=== PATIENT | male | born 1965 | race Caucasian/White ===

== ENCOUNTER → 2019-04-24 | Outpatient (CLI) | payer BC ==
--- NOTE | 2019-04-24 15:44 | 2DMMODE ---
[place] [address] 2 D/M-MODE ECHOCARDIOGRAM Name: LIZZIE WISE Room: [facility]#: [id number] Admission: 04/24/19 Attend Phys: Saba Jackman, Discharge: Date of : 69 Date of Service: 04/24/19 1542 Report #: [id number] THIS REPORT FOR: cc: Dallas Campoverde,Dallas Andrade,Marky Bruce MD [facility] ~ APPROVED REPORT Study performed: 04/24/2019 11:00:20 EXAM: Comprehensive 2D, Doppler, and color-flow Echocardiogram Patient Location: Out-Patient BSA: 2.24 HR: 85 bpm BP: 128/84 mmHg Other Information Study Quality: Good Indications Dyspnea 2D Dimensions IVSd: 12.61 (7-11mm) LVOT Diam: 20.32 (18-24mm) LVDd: 48.32 mm PWd: 11.55 (7-11mm) Ascending Ao: 28.56 (22-36mm) LVDs: 29.16 (25-40mm) Aortic Root: 29.80 mm Volumes Left Atrial Volume (Systole) LA ESV Index: 11.00 mL/m2 Aortic Valve AoV Peak Alexandre.: 1.14 m/s AO Peak Gr.: 5.22 mmHg LVOT Max P.61 mmHg AO Mean Gr.: 2.99 mmHg LVOT Mean P.05 mmHg LVOT Max V: 1.07 m/s AO V2 VTI: 21.29 cm LVOT Mean V: 0.64 m/s RONALD (VTI): 3.48 cm2 LVOT V1 VTI: 22.84 cm Mitral Valve E/A Ratio: 0.97 [place] [address] 2 D/M-MODE ECHOCARDIOGRAM Name: LIZZIE WISE Room: [facility]#: [id number] Admission: 04/24/19 Attend Phys: Saba Jackman, Discharge: Date of : 69 Date of Service: 04/24/19 1542 Report #: [id number] MV Decel. Time: 203.05 ms MV E Max Alexandre.: 0.54 m/s MV PHT: 58.88 ms MVA (PHT): 3.74 cm2 TDI E/Lateral E': 4.50 E/Medial E': 6.75 Medial E' Alexandre.: 0.08 m/s Lateral E' Alexandre.: 0.12 m/s Pulmonary Valve PV Peak Alexandre.: 1.12 m/s PV Peak Gr.: 5.06 mmHg Tricuspid Valve RAP Estimate: 5.00 mmHg TR Peak Gr.: 19.36 mmHg RVSP: 24.36 mmHg PA Pressure: 24.36 mmHg Left Ventricle The left ventricle is normal size. There is normal LV segmental wall motion. There is normal left ventricular wall thickness. Left ventricular systolic function is normal. The left ventricular ejection fraction is within the normal range. LVEF is 55-60%. The left ventricular diastolic function is normal. Right Ventricle The right ventricle is normal size. The right ventricular systolic function is normal. Atria The left atrium size is normal. The right atrium size is normal. Aortic Valve The aortic valve is normal in structure. No aortic regurgitation is present. There is no aortic valvular stenosis. Mitral Valve The mitral valve is normal in structure. There is no mitral valve regurgitation noted. No evidence of mitral valve stenosis. Tricuspid Valve The tricuspid valve is normal in structure. Mild tricuspid regurgitation[place] [address] 2 D/M-MODE ECHOCARDIOGRAM Name: LIZZIE WISE Room: [facility]#: [id number] Admission: 04/24/19 Attend Phys: Saba Jackman, Discharge: Date of : 69 Date of Service: 04/24/19 1542 Report #: [id number] The pulmonary valve is normal in structure. There is no pulmonic valvular regurgitation. Great Vessels The aortic root is normal in size. IVC is normal in size and collapses >50% with inspiration. Pericardium There is no pericardial effusion. <Conclusion> The left ventricle is normal size. There is normal left ventricular wall thickness. Left ventricular systolic function is normal. The left ventricular ejection fraction is within the normal range. LVEF is 55-60%. The left ventricular diastolic function is normal. The right ventricle is normal size. The left atrium size is normal. The aortic valve is normal in structure. The mitral valve is normal in structure. The tricuspid valve is normal in structure. Mild tricuspid regurgitation. IVC is normal in size and collapses >50% with inspiration. There is no pericardial effusion. There is normal LV segmental wall motion. <ELECTRONICALLY SIGNED> By: Marky Morris MD, FACC 04/24/19 1542 [id number] Marky Morris MD, FACC /INF
--- NOTE | 2019-04-24 16:11 | CARDNUC ---
[place] [address] CARDIAC NUCLEAR IMAGING REPORT Name: LIZZIE WISE Room: [facility]#: [id number] Admission: 04/24/19 Attend Phys: Saba Jackman, Discharge: Date of : 69 Date of Service: 04/24/19 1609 Report #: [id number] THIS REPORT FOR: cc: Dallas Campoverde Gregg R. DO Liston, Michael J. MD [facility] ~ APPROVED REPORT Study performed: 04/24/2019 09:52:57 Indication: Chest pain, Dyspnea, Fatigue, Palpitations , increased Calcium score. Patient Location: Out-Patient Stress Tech: Katia Meyer Stress Nurse: Christa Howard RN Ht: 6 ft 2 in Wt: 226 lbs BSA: 2.29 m2 BMI: 29.01 Medical History Medical History: Angina, Fatigue, Former Smoker, SOB, Palpitations, increase calcium score. Medications: No cardiac meds. Allergies: No known drug allergies Cardiac Risk Factors: Age, FHX of CAD, SOB, Past Smoker, Palpitations, increased Calcium score, chest pain. Previous Cardiac Procedures: None Pretest Chest Pain Characteristics: No chest pain Exercise History: Physically active Physical Disabilities: None Meds Held (24 hrs): None Resting Data Rest SPECT myocardial perfusion imaging was performed in supine position 40 minutes following the intravenous injection of 10.5 mCi of Tc-99m Sestamibi. Time of rest injection: 08:05 The images were gated to evaluate regional wall motion and calculate left ventricular ejection fraction. Administration Route: IV Administration Site: Right Hand Exercise Stress At peak stress, the patient was injected intravenously with 35.7m[place] [address] CARDIAC NUCLEAR IMAGING REPORT Name: LIZZIE WISE Room: [facility]#: [id number] Admission: 04/24/19 Attend Phys: Saba Jackman, Discharge: Date of : 69 Date of Service: 04/24/19 1609 Report #: [id number] of Tc-99m Sestamibi. Time of stress injection: 10:00 Administration Route: IV Administration Site: Right Hand Heart Rate at time of stress injection: 156 bpm. Patient continued to exercise for 1 minute(s). Gated Stress SPECT was performed 30 minutes after stress injection. The images were gated to evaluate regional wall motion and calculate left ventricular ejection fraction. Prone imaging was performed. Stress Test Details Stress Test: Exercise stress testing was performed using a Jack protocol. HR Max Heart Rate (APMHR): 169 bpm Resting HR: 67 bpm Target HR (85% APMHR): 143 bpm Max HR Achieved: 164 bpm % of APMHR: 97 Recovery HR: 101 bpm BP Resting BP: 128/84 mmHg Max BP: 168/83 mmHg Recovery BP: 127/88 mmHg ECG Resting ECG: Sinus Rhythm Stress ECG: Sinus Tachycardia ST Change: None Arrhythmia: None Recovery ECG: Sinus Rhythm Recovery ST Change: None Recovery Arrhythmia: None Clinical Reason for Termination: Completed protocol, Maximal effort Stress Symptoms: Dyspnea, Leg Fatigue, Fatigue. Exercise duration: 11 min 00 sec Exercise capacity: 11.80 METs Overall Exercise Capacity for Age: Superior. The patient exhibited good exercise tolerance on the standard Jack protocol. He had no cardiac symptoms. Nurse Comments A 53 year old male presented for a Jack protocol [place] [address] CARDIAC NUCLEAR IMAGING REPORT Name: LIZZIE WISE Room: [facility]#: [id number] Admission: 04/24/19 Attend Phys: Saba Jackman, Discharge: Date of : 69 Date of Service: 04/24/19 1609 Report #: [id number] r/t dyspnea, increased fatigue, chest pain, palpitations and an increased calcium score. Treadmill tolerated to stage 4. Recovery unremarkable. Patient was escorted by staff to Nuclear Medicine for imaging. Patient was stable and stated he felt good at that time. Stress ECG Conclusion The baseline 12-lead EKG shows sinus rhythm without significant ST segment abnormality. EKGs obtained during and post exercise showed sinus rhythm and sinus tachycardia with no significant ST segment changes when compared baseline. There were no stress-induced arrhythmias. Study Quality Study: Good Artifact: No artifact Study Data At rest, the left ventricular ejection fraction was 77%.. Post stress, the left ventricular ejection was 79%.. TID = 0.79. Perfusion Normal left ventricular perfusion. Wall Motion Normal left ventricular wall motion. Nuclear Conclusion ECG Findings: negative for ischemia Clinical Findings: negative for ischemia Nuclear Findings: negative for ischemia Exercise Capacity: normal Left Ventricular Function: normal Risk Study: low Myocardial perfusion images show no defect to suggest infarct or ischemia. Left ventricular systolic function appears normal on gated studies. This is a low risk study. <Conclusion> The baseline 12-lead EKG shows sinus rhythm without significant ST segment abnormality. EKGs obtained during and post exercise showed sinus rhythm and sinus tachycardia with no significant [place] [address] CARDIAC NUCLEAR IMAGING REPORT Name: LIZZIE WISE Room: [facility]#: [id number] Admission: 04/24/19 Attend Phys: Saba Jackman, Discharge: Date of : 69 Date of Service: 04/24/19 1609 Report #: [id number] changes when compared baseline. There were no stress-induced arrhythmias. <ELECTRONICALLY SIGNED> By: Kimani Ma MD, [facility] 04/24/19 1609 160 [id number] Kimani Ma MD, FACC /INF
== END ==
LOC: M.CRD 04-07 08:13 → M.NUC 07:39 → M.CRD 11:00
DX: I07.1 Rheumatic tricuspid insufficiency (principal); R93.1 Abnormal findings on diagnostic imaging of heart and coronary circulation; R53.83 Other fatigue